=== PATIENT | male | born 1970 | race Caucasian/White ===

== ENCOUNTER 2017-08-10 14:00 | Outpatient (CLI) | payer OTHER ==
--- NOTE | 2017-08-10 17:38 | RAD ---
THORACIC SPINE 3 VIEWS: Date: 08/10/17 HISTORY: Mid back pain. FINDINGS: Thoracic vertebra maintain height and alignment. There are degenerative changes noted with anterior b ridging osteophytes. There is mild physiologic wedging of the mid and lower thoracic vertebra. Ossifi cation of anterior longitudinal ligament. There is evidence of syndesmophytes seen laterally on the r ight in the mid and lower thoracic spine. No evidence of syndesmophytes seen anteriorly on the latera l projection. IMPRESSION: Hypertrophic changes with ossification of anterior longitudinal ligament and bridging osteophytes. POS: [facility]
== END 2017-08-10 14:01 | disposition home or self-care (01) ==
LOC: TBSIIMAG 14:00
PROVIDERS: ATTEND Neurological Surgery
DX: M54.9 Dorsalgia, unspecified (principal)
CPT/HCPCS: 72072